=== PATIENT | female | born 1975 | race Caucasian/White ===

== ENCOUNTER 2017-03-01 16:07 | Emergency (ER) | payer MEDICAID ==
[2017-03-01 16:51] LABS: Hematocrit 42.6 % (37.0-47.0); Hemoglobin 14.6 gm/dL (12.5-16.0); Mean Cell Volume 81.5 fl (78-100); Mean Corpuscular Hemoglobin 27.9 pg (27-31); Mean Corpuscular Hgb Conc 34.3 g/dl (32-36); Mean Platelet Volume 10.2 fl (6.0-9.5); Neutrophil # 5.9 K/mm3 (1.3-6.0); Neutrophil % 65.9 % (42-75.0); Platelet Count 315 K/mm3 (150-450); Red Blood Count 5.23 M/mm3 (4.2-5.4); Red Cell Distribution Width 12.5 % (11.5-14.0)
[2017-03-01] MEDS ORDERED: KETOROLAC TROMETHAMINE 30 MG/ML VIAL IV ONE (17:03)
[2017-03-01] MEDS ORDERED: HYDROmorphone HCL 1 MG/ML DISP.SYRIN IV ONE (17:03)
[2017-03-01] MEDS ORDERED: NORMAL SALINE 1,000 ML IV ONE (17:03)
[2017-03-01 17:04] LABS: Albumin * 3.7 gm/dl (3.4-5.0); Anion Gap 13.5 mmol/L (6.8-13.8); BUN/Creatinine Ratio 12.1 (9.0-21.6); Bilirubin, Total 0.3 mg/dL (0.0-1.1); Calcium * 9.1 mg/dL (7.9-10.9); Carbon Dioxide 26.9 mmol/L (24-32.6); Potassium 4.4 mmol/L (3.4-4.6); Total Protein 7.9 gm/dL (6.2-8.2)
--- OUTSIDE RECORDS SUMMARY | 2017-03-01 17:16 | XMS REPORT | Encounter Summary ---
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) [id number] [place] [address] [place], [place] [id number] Social History Tobacco Use Types Packs/Day Years Used Date Former Smoker Smokeless Tobacco: Never Used Alcohol Use Drinks/Week oz/Week Comments No Sex Assigned at Date Recorded Not on file as of this encounter Plan of Treatment Name Priority Associated Diagnoses Order Schedule TSH Routine Hyperthyroidism Expected: 02/27/2017, Expires: 01/15/2018 T4, free Routine Hyperthyroidism Expected: 02/27/2017, Expires: 01/15/2018 T3, free Routine Hyperthyroidism Expected: 02/27/2017, Expires: 01/15/2018 as of this encounter Visit Diagnoses Diagnosis Hyperthyroidism - Primary Thyrotoxicosis without mention of goiter or other cause, without mention of thyrotoxic crisis or storm in this encounter
--- OUTSIDE RECORDS SUMMARY | 2017-03-01 17:16 | XMS REPORT | Clinical Summary ---
:1975 Author Organization [employer] [place] [address] Care Team Providers Name Role Phone Unavailable Primary Care Provider Unavailable Source Comments This disclosure is being made pursuant to the [employer] program and maynot contain all information available regarding this patient.[employer] [facility] Allergies Active Allergy Reactions Severity Noted Date Comments Penicillins Rash Low 10/19/2016 Current Medications Be aware that medications may not be up to date as of this document. Alwaysverify current medications with the patient. Prescription Sig. Disp. Refills Start Date End Date Status escitalopram (LEXAPRO) Take 10 mg by 11/15/2015 Active 10 MG tablet mouth daily. fluticasone (FLONASE) 2 sprays by Left 10/25/2015 Active 50 MCG/ACT nasal spray Naris route daily. LORazepam (ATIVAN) 0.5 Take 0.5 mg by 11/15/2015 Active MG tablet mouth daily. SUMAtriptan succinate Take 100 mg by 04/01/2015 Active (IMITREX) 100 MG mouth as needed. tablet traZODone (DESYREL) Take 100 mg by Active 100 MG tablet mouth nightly. furosemide (LASIX) 20 Take 1 tab twice 60 tablet 0 10/27/2016 Active MG tablet a day as needed for leg swelling. methimazole (TAPAZOLE) Take 2.5 tablets 225 tablet 3 11/30/2016 Active 10 MG tablet by mouth 3 (three) times daily. 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 01/15/2017 Orders Only Manpreet Bear, DO 01/12/2017 Orders Only Endocrinology Manpreet Bear, Screening; DO Hyperthyroidism 01/02/2017 Orders Only Endocrinology Efe Barclay, Screening (Primary Dx); PETROLEUM INSPECTOR SUPERVISOR Hyperthyroidism 01/02/2017 Refill Endocrinology Efe Barclay, PETROLEUM INSPECTOR SUPERVISOR 12/29/2016 Telephone Endocrinology Efe Barclay, Results PETROLEUM INSPECTOR SUPERVISOR 11/30/2016 Office Visit Endocrinology Manpreet Bear, Right upper quadrant pain (Primary Dx); DO WELLS (dyspnea on exertion); Hyperthyroidism; Thyroid nodule; Rash from Last 3 Months Family History Medical History Relation Name Comments Hypertension Father Hyperlipidemia Maternal Grandmother Thyroid disease Maternal Grandmother Cancer Maternal Uncle Hypertension Mother Thyroid disease Mother Relation Name Status Comments Father Maternal Grandmother Maternal Uncle Mother Social History Tobacco Use Types Packs/Day Years Used Date Former Smoker Smokeless Tobacco: Never Used Tobacco Cessation:Counseling Given: Yes Alcohol Use Drinks/Week oz/Week Comments No Sex Assigned at Date Recorded Not on file Last Filed Vital Signs Vital Sign Reading Time Taken Blood Pressure 154/90 11/30/2016 8:41 AM CDT Pulse 68 11/30/2016 8:41 AM CDT Temperature - - Respiratory Rate - - Oxygen Saturation - - Inhaled Oxygen Concentration - - Weight 95.3 kg (210 lb 1.6 oz) 11/30/2016 8:41 AM CDT Height 172.7 cm (5' 8") 11/30/2016 8:41 AM CDT Body Mass Index 31.95 11/30/2016 8:41 AM CDT Plan of Treatment Health Maintenance Due Date Last Done Comments Tetanus/Pertussis (1 - Tdap) 10/04/1994 Pap Smear 10/04/1996 INFLUENZA IMMUNIZATION (#1) 2017 Results NM HYPERTHYROID THERAPY I 131 (01/12/2017)NM THYROID IMAGING W FLOW (01/11/2017) hCG, Quantitative (01/11/2017) Specimen Performing Laboratory EXTERNAL NON UPH - NO INTERFACE T3, free (12/28/2016 9:36 AM) Component Value Ref Range T3, Free 4.45(H) 1.71 - 3.71 pg/mL Specimen Performing Laboratory [facility] [address] [place] [address] Narrative Testing performed at [facility], [address] [place] [address].Pool Lifeguard Hema Ye MD TSH (12/28/2016 9:36 AM) Component Value Ref Range TSH <0.010(L) 0.350 - 4.940 uIU/mL Specimen Performing Laboratory [facility] [address] [place] [address] Narrative Testing performed at [facility], [address] [place] [address].Pool Lifeguard Hema Ye MD T4, free (12/28/2016 9:36 AM) Component Value Ref Range Free T4 1.04 0.70 - 1.48 ng/dL Specimen Performing Laboratory [facility] [address] [place] [address] Narrative Testing performed at [facility], [address] [place] [address].Pool Lifeguard Hema Ye MD CBC auto differential (11/30/2016 9:49 AM) Component Value Ref Range WBC 6.3 3.1 - 11.0 x10^3/uL RBC 4.45 3.60 - 5.17 x10^6/uL Hemoglobin 11.9 11.1 - 15.3 g/dL Hematocrit 36.0 33.7 - 46.0 % MCV 80.9(L) 81.0 - 98.0 fL MCH 26.7(L) 27.2 - 33.3 pg MCHC 33.1 31.7 - 35.6 g/dL RDW 13.1 10.8 - 14.6 % SD-RDW 36.7(L) 37.0 - 50.4 fL Platelets 253 147 - 370 x10^3/uL MPV 11.1 9.1 - 12.1 fL NE% 55.1 42.0 - 76.0 % %LYMPH 28.9 15.0 - 44.0 % %MONO 8.8 4.0 - 13.0 % % Eosinophils 6.5(H) 0.0 - 6.0 % % Basophils 0.5 0.0 - 1.0 % Imm Gran Relative 0.2 0.0 - 1.0 % NE# 3.5 1.2 - 7.3 x10^3/uL Lymphs # 1.8 0.6 - 3.5 x10^3/uL Gonzales# 0.6 0.2 - 0.9 x10^3/uL Eosinophil # 0.4 0.0 - 0.4 x10^3/uL Baso# 0.0 0.0 - 0.1 x10^3/uL Imm Gran Absolute 0.01 0.00 - 0.10 x10^3/uL Specimen Performing Laboratory BLOOD [facility] [address] [place] [address] Narrative Testing performed at [facility], [address] [place] [address].Pool Lifeguard Hema Ye MD Hepatic function panel (11/30/2016 9:49 AM) Component Value Ref Range Albumin 3.0(L) 3.5 - 5.0 g/dL Total Protein 6.5 6.1 - 8.0 g/dL Bilirubin Total 0.5 0.2 - 1.2 mg/dL Bilirubin, Direct 0.2 0.0 - 0.5 mg/dL Alkaline Phosphatase 211(H) 40 - 150 U/L AST 16 5 - 34 U/L ALT 31 0 - 55 u/L Specimen Performing Laboratory [facility] [address] [place] [address] Narrative Testing performed at [facility] [place], [address] [place] [address].Pool Lifeguard Hema Ye MD Basic metabolic panel (11/30/2016 9:49 AM) Component Value Ref Range Glucose 113(H) 60 - 100 mg/dL Comment: Fasting Plasma Glucose (FPG)<100 MG/DL Impaired Fasting Glucose (IFG) 100-125 MG/DL Provisional Diagnosis of Diabetes Mellitus > kd=986 MG/DL (Diagnosis Must Be Confirmed) BUN, Blood 12 7 - 19 mg/dL Creatinine 0.7 0.6 - 1.2 mg/dL Glomerular Filtration Rate 110 >90 mL/min/1.73mm2 Estimate Glomerlular Filtration Rate 127Comment:The estimated GFR >90 mL/min/1.73mm2 Estimate- has not been validated for women or patients with serious comorbid conditions, or with extremes of body size, muscle mass, or nutritional status. Calcium 9.0 8.4 - 10.2 mg/dL Sodium 140 136 - 145 mmol/L Potassium 3.8 3.5 - 4.6 mmol/L Chloride 109 99 - 111 mmol/L CO2 23.6 21.0 - 32.0 mmol/L Specimen Performing Laboratory [facility] [address] [place] [address] Narrative Testing performed at [facility], [address] [place] [address].Pool Lifeguard Hema Ye MD from Last 3 Months Insurance Payer Benefit Plan / Subscriber ID Type Phone Address Group [place] [id number] [place] of State [phone]
--- OUTSIDE RECORDS SUMMARY | 2017-03-01 17:16 | XMS REPORT | Encounter Summary ---
:1975 Author Organization [employer] Address [place] [address] Care Team Providers Name Role Phone Unavailable Primary Care Provider Unavailable Encounter Details Date Type Department Care Team Description 01/15/2017 Orders Only [facility] Manpreet Bear, DO Centralized Scanning [facility] [place] [address] Social History Tobacco Use Types Packs/Day Years Used Date Former Smoker Smokeless Tobacco: Never Used Alcohol Use Drinks/Week oz/Week Comments No Sex Assigned at Date Recorded Not on file as of this encounter Plan of Treatment Not on fileas of this encounter Results NM HYPERTHYROID THERAPY I 131 (01/12/2017)NM THYROID IMAGING W FLOW (01/11/2017) in this encounter Visit Diagnoses Not on filein this encounter
--- OUTSIDE RECORDS SUMMARY | 2017-03-01 17:17 | XMS REPORT | Encounter Summary ---
:1975 Author Organization [employer] [place] [address] Care Team Providers Name Role Phone Unavailable Primary Care Provider Unavailable Reason for Visit Reason Comments Results Encounter Details Date Type Department Care Team Description 12/29/2016 Telephone [facility] Efe Barclay, [facility] Results Endocrinology [address] [place] [address] [place] [address] [phone] Social History Tobacco Use Types Packs/Day Years Used Date Former Smoker Smokeless Tobacco: Never Used Alcohol Use Drinks/Week oz/Week Comments No Sex Assigned at Date Recorded Not on file as of this encounter Plan of Treatment Not on fileas of this encounter Visit Diagnoses Not on filein this encounter
--- OUTSIDE RECORDS SUMMARY | 2017-03-01 17:17 | XMS REPORT | Encounter Summary ---
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 Hyperthyroidism [address] [place] [address] [place] [address] Social History Tobacco Use Types Packs/Day Years Used Date Former Smoker Smokeless Tobacco: Never Used Alcohol Use Drinks/Week oz/Week Comments No Sex Assigned at Date Recorded Not on file as of this encounter Plan of Treatment Not on fileas of this encounter Results hCG, Quantitative (01/11/2017) Specimen Performing Laboratory EXTERNAL NON UPH - NO INTERFACE in this encounter Visit Diagnoses Diagnosis Screening - Primary Screening for unspecified condition Hyperthyroidism Thyrotoxicosis without mention of goiter or other cause, without mention of thyrotoxic crisis or storm in this encounter
--- OUTSIDE RECORDS SUMMARY | 2017-03-01 17:17 | XMS REPORT | Encounter Summary ---
:1975 Author Organization [employer] [place] [address] Care Team Providers Name Role Phone Unavailable Primary Care Provider Unavailable Reason for Visit Reason Comments Medication Refill Encounter Details Date Type Department Care Team Description 01/02/2017 Refill [facility] Efe Barclay, [facility] Endocrinology [address] [place] [address] [place] [address] [phone] Social History Tobacco Use Types Packs/Day Years Used Date Former Smoker Smokeless Tobacco: Never Used Alcohol Use Drinks/Week oz/Week Comments No Sex Assigned at Date Recorded Not on file as of this encounter Plan of Treatment Not on fileas of this encounter Visit Diagnoses Not on filein this encounter
--- OUTSIDE RECORDS SUMMARY | 2017-03-01 17:17 | XMS REPORT | Encounter Summary ---
:1975 Author Organization [employer] [place] [address] Care Team Providers Name Role Phone Unavailable Primary Care Provider Unavailable Encounter Details Date Type Department Care Team Description 01/12/2017 Orders Only [facility] Manpreet Bear, DO Screening; Endocrinology [address] Hyperthyroidism [address] [place] [address] [place] [id number] Social History Tobacco Use Types Packs/Day Years Used Date Former Smoker Smokeless Tobacco: Never Used Alcohol Use Drinks/Week oz/Week Comments No Sex Assigned at Date Recorded Not on file as of this encounter Plan of Treatment Not on fileas of this encounter Results hCG, Quantitative (01/11/2017) Specimen Performing Laboratory EXTERNAL NON UPH - NO INTERFACE in this encounter Visit Diagnoses Diagnosis Screening Screening for unspecified condition Hyperthyroidism Thyrotoxicosis without mention of goiter or other cause, without mention of thyrotoxic crisis or storm in this encounter
--- OUTSIDE RECORDS SUMMARY | 2017-03-01 17:18 | XMS REPORT | Encounter Summary ---
:1975 Author Organization [employer] [place] [address] Care Team Providers Name Role Phone Unavailable Primary Care Provider Unavailable Reason for Referral Diagnostic Cardiology (Routine) Status Reason Specialty Diagnoses / Referred By Referred To Procedures Contact Contact Authorization Not Diagnoses Hyperthyroidism Edema of lower extremity, unspecified laterality WELLS (dyspnea on exertion) Manpreet Bear Needed Procedures TTE (Transthoracic Echo) Complete C, DO [address] [place] [address] Diagnostic Cardiology (Routine) Status Reason Specialty Diagnoses / Referred By Referred To Procedures Contact Contact Authorization Not Diagnoses Hyperthyroidism Edema of lower extremity, unspecified laterality WELLS (dyspnea on exertion) Manpreet Bear Needed Procedures Echocardiogram 2D complete C, DO [address] [place] [address] Reason for Visit Reason Comments Thyroid Problem Encounter Details Date Type Department Care Team Description 10/27/2016 Initial consult [facility] Manpreet Bear Thyroid nodule (Primary Dx); Endocrinology C, DO Hyperthyroidism; [address] WELLS (dyspnea on exertion); [place] [address] [place] [address] Bilateral edema of lower extremity; [phone] Graves disease Social History Tobacco Use Types Packs/Day Years Used Date Former Smoker Tobacco Cessation:Counseling Given: No Sex Assigned at Date Recorded Not on file as of this encounter Last Filed Vital Signs Vital Sign Reading Time Taken Blood Pressure 112/78 10/27/2016 9:04 AM CDT Pulse 80 10/27/2016 9:04 AM CDT Temperature - - Respiratory Rate - - Oxygen Saturation - - Inhaled Oxygen Concentration - - Weight 92.5 kg (203 lb 14.4 oz) 10/27/2016 9:04 AM CDT Height 172.7 cm (5' 8") 10/27/2016 9:04 AM CDT Body Mass Index 31 10/27/2016 9:04 AM CDT in this encounter Progress Notes Manpreet Bear, DO - 10/27/2016 9:02 AM CDTFormatting of this note may be different from the original. [facility] Department of Endocrinology [address] [place], [place] [id number] Subjective: Vaishali Aldrich is a 41 y.o. female who I am seeing for hyperthyroidism. The patient is a referral from Suzy Brink NP. I reviewed the patient's most recent notes, which outline the diagnosis and treatment of their medical condition up to this point. She got sick beginning of last month. On tamilflu, 3 days into flu began having shaking in legs. She began shaking more all over body, got chest pains, labs showed hyperthyroidism. She is having trouble sleeping, body wide swelling, WELLS,leg weakness, dysphagia, depression, hives, heat intolerance, no energy. No eye involvement. She was put on propranolol. Now on 80mg ER and 40 of regular daily. She is still having WELLS and palpitations. Recent labs reviewed today: Component Latest Ref Rng 09/25/2016 T3, Free 2.30-4.20>25.00 T4, Free 0.80-1.70>6.09 TSH 0.35-5.00<0.01 09/27/16: TSI 221 (0-139) TPO ab 16 Mom and MGM had Graves' disease. In May last year, thyroid labs were done that suggested hyperthyroidism, then she was told this was fine. CT chest with contrast done on 09/26/16 that showed thyromegaly. Past Medical History History reviewed. No pertinent past medical history. Past Surgical History History reviewed. No pertinent past surgical history. Allergies Penicillins Medications Current Outpatient Prescriptions Medication Sig Dispense Refill escitalopram (LEXAPRO) 10 MG tablet Take 10 mg by mouth daily. fluticasone (FLONASE) 50 MCG/ACT nasal spray 2 sprays by Left Naris route daily. LORazepam (ATIVAN) 0.5 MG tablet Take 0.5 mg by mouth daily. propranolol (INDERAL) 40 MG tablet Take 80 mg by mouth daily. SUMAtriptan succinate (IMITREX) 100 MG tablet Take 100 mg by mouth as needed. traZODone (DESYREL) 100 MG tablet Take 100 mg by mouth nightly. furosemide (LASIX) 20 MG tablet Take 1 tab twice a day as needed for leg swelling. 60 tablet 0 methimazole (TAPAZOLE) 10 MG tablet Take 2 tablets by mouth 3 (three) times daily. 180 tablet 3 No current facility-administered medications for this visit. Family History Family History Problem Relation Age of Onset Hypertension Mother Thyroid disease Mother Hypertension Father Cancer Maternal Uncle Hyperlipidemia Maternal Grandmother Thyroid disease Maternal Grandmother Social History Social History Substance Use Topics Smoking status: Former Smoker Smokeless tobacco: Not on file Alcohol Use: Not on file Review of Systems Weight loss: no Weight gain: yes Increased fatigue: no Anxiety: no Emotional lability: no Heat intolerance: yes Cold intolerance: no Palpitations: yes Increased frequency of bowel movements: no Unusual constipation: no Weakness: no Difficulty sleeping: yes Difficulty concentrating: no Excessive hair loss: no Increased dryness of skin: no Tremor: yes Objective: Filed Vitals: 10/27/16 0904 BP: 112/78 Pulse: 80 Wt Readings from Last 3 Encounters: 10/27/16 92.488 kg (203 lb 14.4 oz) Body mass index is 31.01 kg/(m^2). Constitutional: Looks well, but complaining of being too hot Psych: Normal affect, alert, oriented, cooperative Neck/throat: moist oral mucosa, thyroid enlarged without distinctly palpable nodules Respiratory: Respiratory effort normal, breath sounds normal, no rales, no rhonchi, no wheezing Cardiac: Heart rate normal, heart rhythm normal, heart sounds normal, no heart murmur Vascular: DP and PT pulses present Lymph: no cervical lymphadenopathy Skin: warm, moist Neuro: nonfocal, + tremor, DTRs hyperreflexic Musculoskeletal: + LE weakness and + BLE edema- 1+ pitting Lab Review Lab Results Component Value Date TSH<0.01 09/25/2016 No results found for: FREET4 Assessment/Plan: 1. Hyperthyroidism Severe. Due to WELLS and LE edema, I am concerned for high output heart failure. Will start Lasix 20mg twice daily and get Echocardiagram. Agree with propranolol 40mg three times daily. I will start Methimazole 20mg three times daily with TSH, FT4, FT3 in 4 weeks and f/u with me in 2 weeks. - Echocardiogram 2D complete; Future - TTE (Transthoracic Echo) Complete; Future 2. WELLS (dyspnea on exertion) Appears to be due to high-output heart failure. Plan as above. - Echocardiogram 2D complete; Future - TTE (Transthoracic Echo) Complete; Future 3. Bilateral edema of lower extremity Appears to be due to high-output heart failure. Plan as above. - Echocardiogram 2D complete; Future - TTE (Transthoracic Echo) Complete; Future 4. Thyroid nodule Too small to merit biopsy. Will reimage at a future time. 5. Graves disease As above. Severe. Laboratory results were reviewed and discussed with the patient. The patient voiced understanding and agreement with the above treatment plan. RTC in 2 weeks. Thank you for this consult. CC Suzy Brink NPin this encounter Plan of Treatment Not on fileas of this encounter Results TSH (11/27/2016 11:33 AM) Component Value Ref Range TSH <0.010(L) 0.350 - 4.940 uIU/mL Specimen Performing Laboratory [facility] [address] [place] [address] Narrative Testing performed at [facility], [address] [place] [address].Radio Mechanic Hema Ye MD T4, free (11/27/2016 11:33 AM) Component Value Ref Range Free T4 1.62(H) 0.70 - 1.48 ng/dL Specimen Performing Laboratory [facility] [address] [place] [address] Narrative Testing performed at [facility], [address] [place] [address].Radio Mechanic Hema Ye MD T3, free (11/27/2016 11:33 AM) Component Value Ref Range T3, Free 5.36(H) 1.71 - 3.71 pg/mL Specimen Performing Laboratory [facility] [address] [place] [address] Narrative Testing performed at [facility], [address] [place] [address].Radio Mechanic Hema Ye MD TTE (Transthoracic Echo) Complete (10/27/2016 10:36 AM) Specimen Performing Laboratory [facility] [place] [address] Echocardiographic Report Patient Name: VAISHALI ALDRICH JPatient ID: [id number] : [id number] Date: 10/27/2016 10:36:35 AM Gender: FAccession #: [id number] BSA: 2.11Weight(Kg): 92 Quality: Good Procedures: Echocardiographic Report: Transthoracic echocardiogram with complete 2D, M-Mode, color flow and Doppler examination. Indications: Edema, Shortness of breath, and Hyperthyroidism. Measurements: 2D/M Mode MeasurementValueNormal Range IVSd MM1.1[ 0.6 - 0.9 ] cm IVSs MM1.54 [ 1.00 - 5.00 ] cm LVIDd MM 5.3[ 3.9 - 5.3 ] cm LVIDs MM 2.9[ 2.3 - 3.9 ] cm LVPWs MM 1.7[ 1.0 - 5.0 ] cm AoR Diam MM2.70 [ 2.60 - 3.70 ] cm LA Dimen MM3.8[ 2.7 - 3.8 ] cm LA/Ao MM 1.39 ratio ACS MM 1.8cm EDV MM 130.0[ 56.0 - 104.0 ] ml ESV MM 33.2 [ 19.0 - 49.0 ] ml LV FS MM 43.6 [ 27.0 - 45.0 ] percent EF MM74.4 [ 55.0 - 70.0 ] percent LVPWd 2D 1.1[ 0.6 - 1.0 ] cm MV E/A 1.9[ 0.8 - 1.5 ] ratio MV Decel Time0.2[ 104.0 - 258.0 ] msec MV PHT 0.6 PV Peak Ehf460.0[ 40.0 - 80.0 ] cm/sec PV Peak PG 6.5mmHg TR Peak Dgk177.0[ 100.0 - 280.0 ] cm/sec TR Peak PG 8.8mmHg Doppler MeasurementValueNormal Range AV Mean PG 9.9[ 2.0 - 4.0 ] mmHg AV Peak Xaq399.0[ 100.0 - 170.0 ] cm/sec AV Peak PG 17.0 [ 2.0 - 9.0 ] mmHg KUSH VTI2.3[ 2.0 - 4.0 ] cm2 AV VTI 37.6 cm LVOT Diam2.0[ 1.7 - 2.1 ] cm LVOT Uwpr2596.8 LVOT Mean Jqf705.0[ 60.0 - 80.0 ] cm/sec LVOT Mean PG 5.3[ 1.0 - 3.0 ] mmHg LVOT Peak Hhq056.0[ 70.0 - 110.0 ] cm/sec LVOT Peak PG 8.5[ 2.0 - 6.0 ] mmHg LVOT VTI 27.0 [ 20.0 - 30.0 ] cm MV E Peak Pbq432.0[ 60.0 - 130.0 ] cm/sec MV A Peak Vel55.2 [ 100.0 - 120.0 ] cm/sec Findings: Left Ventricle: Hyperdynamic left ventricular systolic function. Ejection fraction is estimated at 70 %. Borderline left ventricular hypertrophy. Diastolic Function: Diastolic function is normal. Right Ventricle: Normal right ventricular size. Normal right ventricular function. Left Atrium: The left atrium is normal in size. Right Atrium: The right atrium is normal in size. RA Pressure is 3. Mitral Valve: Mitral valve leaflets appear mildly thickened. Trivial mitral regurgitation. Aortic Valve: No significant aortic stenosis or insufficiency. Tricuspid Valve: There is trivial tricuspid regurgitation. Pulmonic Valve: There is trace pulmonic regurgitation. Pericardium: Normal pericardium with no significant pericardial effusion or masses seen. Aorta: Normal aortic root. Conclusions: Hyperdynamic left ventricular systolic function. Ejection fraction is estimated at 70 %. Borderline left ventricular hypertrophy. Diastolic function is normal. The left atrium is normal in size. Mitral valve leaflets appear mildly thickened. Trivial mitral regurgitation. No significant aortic stenosis or insufficiency. There is trivial tricuspid regurgitation. There is trace pulmonic regurgitation. Normal pericardium with no significant pericardial effusion or masses seen. Electronically Signed By: Dr. Zelalem Nevarez MD, [facility], [facility] 2016-10-30 08:18:38 CDT CC: CC: Procedure Note Luciano, External Ris In - 10/30/2016 8:19 AM CDT [facility] [address] Echocardiographic Report Patient Name: VAISHALI ALDRICH JPatient ID: [id number] : [id number] Date: 10/27/2016 10:36:35 AM Gender: FAccession #: [id number] BSA: 2.11Weight(Kg): 92 Quality: Good Procedures: Echocardiographic Report: Transthoracic echocardiogram with complete 2D, M-Mode, color flow and Doppler examination. Indications: Edema, Shortness of breath, and Hyperthyroidism. Measurements: 2D/M Mode Measurement Value Normal Range IVSd MM 1.1 [ 0.6 - 0.9 ] cm IVSs MM 1.54 [ 1.00 - 5.00 ] cm LVIDd MM 5.3 [ 3.9 - 5.3 ] cm LVIDs MM 2.9 [ 2.3 - 3.9 ] cm LVPWs MM 1.7 [ 1.0 - 5.0 ] cm AoR Diam MM 2.70 [ 2.60 - 3.70 ] cm LA Dimen MM 3.8 [ 2.7 - 3.8 ] cm LA/Ao MM 1.39 ratio ACS MM 1.8 cm EDV MM 130.0 [ 56.0 - 104.0 ] ml ESV MM 33.2 [ 19.0 - 49.0 ] ml LV FS MM 43.6 [ 27.0 - 45.0 ] percent EF MM 74.4 [ 55.0 - 70.0 ] percent LVPWd 2D 1.1 [ 0.6 - 1.0 ] cm MV E/A 1.9 [ 0.8 - 1.5 ] ratio MV Decel Time 0.2 [ 104.0 - 258.0 ] msec MV PHT 0.6 PV Peak Hector 128.0 [ 40.0 - 80.0 ] cm/sec PV Peak PG 6.5 mmHg TR Peak Hector 166.0 [ 100.0 - 280.0 ] cm/sec TR Peak PG 8.8 mmHg Doppler Measurement Value Normal Range AV Mean PG 9.9 [ 2.0 - 4.0 ] mmHg AV Peak Hector 206.0 [ 100.0 - 170.0 ] cm/sec AV Peak PG 17.0 [ 2.0 - 9.0 ] mmHg KUSH VTI 2.3 [ 2.0 - 4.0 ] cm2 AV VTI 37.6 cm LVOT Diam 2.0 [ 1.7 - 2.1 ] cm LVOT Area 1109.8 LVOT Mean Hector 109.0 [ 60.0 - 80.0 ] cm/sec LVOT Mean PG 5.3 [ 1.0 - 3.0 ] mmHg LVOT Peak Hector 146.0 [ 70.0 - 110.0 ] cm/sec LVOT Peak PG 8.5 [ 2.0 - 6.0 ] mmHg LVOT VTI 27.0 [ 20.0 - 30.0 ] cm MV E Peak Hector 104.0 [ 60.0 - 130.0 ] cm/sec MV A Peak Hector 55.2 [ 100.0 - 120.0 ] cm/sec Findings: Left Ventricle: Hyperdynamic left ventricular systolic function. Ejection fraction is estimated at 70 %. Borderline left ventricular hypertrophy. Diastolic Function: Diastolic function is normal. Right Ventricle: Normal right ventricular size. Normal right ventricular function. Left Atrium: The left atrium is normal in size. Right Atrium: The right atrium is normal in size. RA Pressure is 3. Mitral Valve: Mitral valve leaflets appear mildly thickened. Trivial mitral regurgitation. Aortic Valve: No significant aortic stenosis or insufficiency. Tricuspid Valve: There is trivial tricuspid regurgitation. Pulmonic Valve: There is trace pulmonic regurgitation. Pericardium: Normal pericardium with no significant pericardial effusion or masses seen. Aorta: Normal aortic root. Conclusions: Hyperdynamic left ventricular systolic function. Ejection fraction is estimated at 70 %. Borderline left ventricular hypertrophy. Diastolic function is normal. The left atrium is normal in size. Mitral valve leaflets appear mildly thickened. Trivial mitral regurgitation. No significant aortic stenosis or insufficiency. There is trivial tricuspid regurgitation. There is trace pulmonic regurgitation. Normal pericardium with no significant pericardial effusion or masses seen. Electronically Signed By: Dr. Zelalem Nevarez MD, [facility], [facility] 2016-10-30 08:18:38 CDT CC: CC: in this encounter Visit Diagnoses Diagnosis Thyroid nodule - Primary Nontoxic uninodular goiter Hyperthyroidism Thyrotoxicosis without mention of goiter or other cause, without mention of thyrotoxic crisis or storm WELLS (dyspnea on exertion) Other dyspnea and respiratory abnormality Bilateral edema of lower extremity Edema Graves disease Toxic diffuse goiter without mention of thyrotoxic crisis or storm in this encounter
--- OUTSIDE RECORDS SUMMARY | 2017-03-01 17:18 | XMS REPORT | Encounter Summary ---
:1975 Author Organization [employer] Address [place] [address] Care Team Providers Name Role Phone Unavailable Primary Care Provider Unavailable Encounter Details Date Type Department Care Team Description 11/30/2016 Office Visit [facility] Manpreet Bear Right upper quadrant pain (Primary Dx); Endocrinology CDO WELLS (dyspnea on exertion); [address] [place] [address] Hyperthyroidism; [place] [address] [place] [address] Thyroid nodule; [phone] Rash Social History Tobacco Use Types Packs/Day Years [...] Mass Index 31.95 11/30/2016 8:41 AM CDT in this encounter Progress Notes Manpreet Bear, DO - 11/30/2016 8:37 AM CDTFormatting of this note may be different from the original. [facility] Department of Endocrinology [address] [place] [id number] Subjective: Vaishali Aldrich is a 41 y.o. [...] got chest pains, labs showed hyperthyroidism. She was having trouble sleeping, body wide swelling, WELLS, leg weakness, dysphagia, depression, hives, heat intolerance, no energy. No eye involvement. She was put on propranolol. Recent labs reviewed today: Component Latest Ref Rng 11/27/2016 09/25/2016 T3, Free 2.30-4.20>25.00 T4, Free 0.80-1.70>6.09 TSH 0.35-5.00<0.01 T3, Free 1.71 - 3.71 pg/mL 5.36 (H) Free T4 0.70 - 1.48 ng/dL 1.62 (H) TSH 0.350 - 4.940 uIU/mL<0.010 (L) 09/27/16: TSI 221 (0-139) TPO ab 16 Mom and MGM had Graves' disease. In Oct last year, thyroid labs were done that suggested hyperthyroidism, then she was told this was fine. CT chest with contrast done on 09/26/16 that showed thyromegaly. On methimazole 25mg three times daily, propranolol 40mg three times daily and lasix 20mg as needed (used twice last week). She continues to complain of WELLS, LE edema--lasix helps. She having trouble sleeping due to large goiter. She can't breathe well. She does not have any palpitations. LE weakness persists. No hives, heat intolerance, hot flashes. Past Medical History No past medical history on file. Past Surgical History No past surgical history on file. Allergies Penicillins Medications Current Outpatient Prescriptions Medication Sig Dispense Refill escitalopram (LEXAPRO) 10 MG tablet Take 10 mg by mouth daily. fluticasone (FLONASE) 50 MCG/ACT nasal spray 2 sprays by Left Naris route daily. furosemide (LASIX) 20 MG tablet Take 1 tab twice a day as needed for leg swelling. 60 tablet 0 LORazepam (ATIVAN) 0.5 MG tablet Take 0.5 mg by mouth daily. methimazole (TAPAZOLE) 10 MG tablet Take 2 tablets by mouth 3 (three) times daily. 180 tablet 3 propranolol (INDERAL) 40 MG tablet Take 80 mg by mouth daily. SUMAtriptan succinate (IMITREX) 100 MG tablet Take 100 mg by mouth as needed. traZODone (DESYREL) 100 MG tablet Take 100 mg by mouth nightly. No current facility-administered medications for this visit. Family History Family History Problem Relation Age of Onset Hypertension Mother Thyroid disease Mother Hypertension Father Cancer Maternal Uncle Hyperlipidemia Maternal Grandmother Thyroid disease Maternal Grandmother Social History Social History Substance Use Topics Smoking status: Former Smoker Smokeless tobacco: Never Used Alcohol Use: No Review of Systems Weight loss: no Weight gain: yes Increased fatigue: no Anxiety: no Emotional lability: no Heat intolerance: no Cold intolerance: no Palpitations: yes Increased frequency of bowel movements: no Unusual constipation: no Weakness: yes Difficulty sleeping: yes Difficulty concentrating: no Excessive hair loss: no Increased dryness of skin: yes Tremor: yes Objective: Filed Vitals: 11/30/16 0841 BP: 154/90 Pulse: 68 Wt Readings from Last 3 Encounters: 11/30/16 95.301 kg (210 lb 1.6 oz) 10/27/16 92.488 kg (203 lb 14.4 oz) Body mass index is 31.95 kg/(m^2). Constitutional: Looks well, but complaining of [...] present Lymph: no cervical lymphadenopathy Skin: warm, moist,light rash on chest Neuro: nonfocal, now tremor, DTRs not hyperreflexic Musculoskeletal: mild LE weakness and no LE edema Lab Review Lab Results Component Value Date TSH<0.010* 11/27/2016 TSH<0.01 09/25/2016 Lab Results Component Value Date FREET4 1.62* 11/27/2016 Conclusions: Hyperdynamic left ventricular systolic function. Ejection fraction is estimated at 70 %. Borderline left ventricular hypertrophy. Diastolic function is normal. The left atrium is normal in size. Mitral valve leaflets appear mildly thickened. Trivial mitral regurgitation. No significant aortic stenosis or insufficiency. There is trivial tricuspid regurgitation. There is trace pulmonic regurgitation. Normal pericardium with no significant pericardial effusion or masses seen. Assessment/Plan: 1. Hyperthyroidism Uncontrolled, but improving. Will cont Lasix 20mg prn. cont propranolol 40mg three times daily. Cont Methimazole, increase to 25mg three times daily with TSH, FT4, FT3 in 4 weeks and f/u with me in 6 weeks. 2. High output heart failure--from hyperthyroidism. Cont propranolol and lasix, ablation after levels controlled. 4. Thyroid nodule Too small to merit biopsy. Will reimage at a future time. 5. Rash--new to me--mild CBC today 6. RUQ pain CMP today. May need to stop methimazole and treat with DECKER early. Laboratory results were reviewed and discussed with the patient. The patient voiced understanding and agreement with the above treatment plan. RTC in 6 weeks. CC Suzy Brink NPin this encounter Plan of Treatment Not on fileas of this encounter Results TSH (12/28/2016 9:36 AM) Component Value Ref Range TSH <0.010(L) 0.350 - 4.940 uIU/mL Specimen Performing Laboratory [facility] [address] [place] [address] Narrative Testing performed at [facility], [address] [place] [address].Commercial Credit Reviewer Hema Ye MD T4, free (12/28/2016 9:36 AM) Component Value Ref Range Free T4 1.04 0.70 - 1.48 ng/dL Specimen Performing Laboratory [facility] [address] [place] [address] Narrative Testing performed at [facility], [address] [place] [address].Commercial Credit Reviewer Hema Ye MD T3, free (12/28/2016 9:36 AM) Component Value Ref Range T3, Free 4.45(H) 1.71 - 3.71 pg/mL Specimen Performing Laboratory [facility] [address] [place] [address] Narrative Testing performed at [facility], [address] [place] [address].Commercial Credit Reviewer Hema Ye MD CBC auto differential (11/30/2016 [...] Lymphs # 1.8 0.6 - 3.5 x10^3/uL [place]# 0.6 0.2 - 0.9 x10^3/uL Eosinophil # 0.4 0.0 - 0.4 x10^3/uL Baso# 0.0 0.0 - 0.1 x10^3/uL Imm Gran Absolute 0.01 0.00 - 0.10 x10^3/uL Specimen Performing Laboratory BLOOD [facility] [address] [place] [address] Narrative Testing performed at [facility], [address] [place] [address].Commercial Credit Reviewer Hema Ye MD Hepatic function panel (11/30/2016 9:49 AM) Component Value Ref Range Albumin 3.0(L) 3.5 - 5.0 g/dL Total Protein 6.5 6.1 - 8.0 g/dL Bilirubin Total 0.5 0.2 - 1.2 mg/dL Bilirubin, Direct 0.2 0.0 - 0.5 mg/dL Alkaline Phosphatase 211(H) 40 - 150 U/L AST 16 5 - 34 U/L ALT 31 0 - 55 u/L Specimen Performing Laboratory [facility] [address] [place] [address] Narrative Testing performed at [facility], [address] [place] [address].Commercial Credit Reviewer Hema Ye MD Basic metabolic panel (11/30/2016 9:49 AM) Component Value Ref Range Glucose 113(H) 60 - 100 mg/dL Comment: Fasting Plasma Glucose (FPG)<100 MG/DL Impaired Fasting Glucose (IFG) 100-125 MG/DL Provisional Diagnosis of Diabetes Mellitus > ts=616 MG/DL (Diagnosis Must Be Confirmed) BUN, Blood [...] 21.0 - 32.0 mmol/L Specimen Performing Laboratory [facility] [address] [place] [address] Narrative Testing performed at [facility], [address] [place] [address].Commercial Credit Reviewer Hema Ye MD in this encounter Visit Diagnoses Diagnosis Right upper quadrant pain - Primary Abdominal pain, right upper quadrant WELLS (dyspnea on exertion) Other dyspnea and respiratory abnormality Hyperthyroidism Thyrotoxicosis without mention of goiter or other cause, without mention of thyrotoxic crisis or storm Thyroid nodule Nontoxic uninodular goiter Rash Rash and other nonspecific skin eruption in this encounter
--- OUTSIDE RECORDS SUMMARY | 2017-03-01 17:18 | XMS REPORT | Encounter Summary ---
:1975 Author Organization [employer] [place] [address] Care Team Providers Name Role Phone Unavailable Primary Care Provider Unavailable Encounter Details Date Type Department Care Team Description 10/19/2016 Abstract [facility] Efe Barclay, [facility] Endocrinology [address] [facility] [address] [place] [address] [place] [id number] Social History Tobacco Use Types Packs/Day Years Used Date Never Assessed Sex Assigned at Date Recorded Not on file as of this encounter Plan of Treatment Not on fileas of this encounter Results TSH (09/25/2016) Component Value Ref Range TSH <0.01 0.35 - 5.00 T4, free (09/25/2016) Component Value Ref Range T4, Free >6.09 0.80 - 1.70 T3, free (09/25/2016) Component Value Ref Range T3, Free >25.00 2.30 - 4.20 in this encounter Visit Diagnoses Not on filein this encounter
--- OUTSIDE RECORDS SUMMARY | 2017-03-01 17:18 | XMS REPORT | Encounter Summary ---
:1975 Author Organization [employer] Address [place] [address] Care Team Providers Name Role Phone Unavailable Primary Care Provider Unavailable Reason for Visit Reason Comments Other Encounter Details Date Type Department Care Team Description 10/30/2016 Telephone [facility] Efe Barclay, [facility] Other Endocrinology [address] [place] [address] [place] [id number] Social History Tobacco Use Types Packs/Day Years Used Date Former Smoker Sex Assigned at Date Recorded Not on file as of this encounter Plan of Treatment Not on fileas of this encounter Visit Diagnoses Not on filein this encounter
[2017-03-01 17:51] LABS: Urine Bilirubin Negative (NEGATIVE); Urine Ketone Negative (NEGATIVE); Urine Nitrite Negative (NEGATIVE); Urine Protein Negative (NEGATIVE); Urine Specific Gravity 1.015 SP.GR. (1.005-1.010); Urine Urobilinogen Normal (NORMAL); Urine pH 5.5 pH (5.0-7.0)
[2017-03-01] MEDS ORDERED: KETOROLAC TROMETHAMINE 30 MG/ML VIAL IM ONE (18:00)
[2017-03-01 18:02] LABS: Urine Appearance Clear; Urine Bacteria 1+; Urine Blood 5 /ul (NEGATIVE); Urine Color Yellow; Urine Other Crystal Few - 1+ /hpf; Urine RBC 0-5 /hpf (0-5); Urine WBC 0-5 /hpf (0-5)
[2017-03-01] MEDS ORDERED: KETOROLAC TROMETHAMINE 30 MG/ML VIAL ONE (18:03)
--- NOTE | 2017-03-01 19:10 | ERNOTE ---
ER Female HPI Date of Service: 03/01/17 Stated Complaint: Back pain Time Seen by Provider: 03/01/17 16:57 Source: patient Exam Limitations: no limitations Immunizations: IMMUNIZATION HX Immunizations Up to Date Yes Allergies/Adverse Reactions: Allergies No Known Allergies Allergy (Unverified 03/01/17 16:33) Home Medications: HOME MEDICATIONS Cyclobenzaprine HCl [Flexeril] 10 mg PO TID PRN #20 tab 03/01/17 [Last Taken Unknown] Escitalopram Oxalate [Lexapro] 10 mg PO DAILY 03/01/17 [Last Taken Unknown] HYDROcodone/ACETAMINOPHEN [[place] 5-325] 1 each PO Q8H PRN #15 tablet 03/01/17 [ Last Taken Unknown] Naproxen 500 mg PO BID #10 tablet. 03/01/17 [Last Taken Unknown] Sulfamethoxazole/Trimethoprim [Bactrim Ds] 1 tab PO BID #14 tab 03/01/17 [Last Taken Unknown] - History of Present Illness Narrative: Patient presents to the ED for back pain. She relates she passed a kidney stone on the left which is typical for her, was feeling better yesterday but this am when she awoke had right low back pain. No radiation of the pain. no radicular Sx. Hurts to move or touch the area. no trauma. Has not seen anyone else for this. No loss of bowel pr bladder control. No vomiting. No dysuria. Pain can be severe. Timing: Present: constant Quality: Present: severe Onset Location: Present: other - right low back Radiation: Present: none Activities at Onset: Present: none Modifying Factors - (Improves): Present: other - nothing Modifying Factors - (Worsens): Present: other - palpation Associated Symptoms: Absent: fever/chills, vomiting, abdominal pain, dysuria Prior Treatment: Absent: recently seen Review of Systems - Review of Systems Constitutional: Absent: fever ENT: Absent: sore throat Respiratory: Absent: shortness of breath Cardiology: Absent: chest pain Gastrointestinal/Abdominal: Absent: abdominal pain Genitourinary: Absent: dysuria Neurological: Absent: weakness, numbness, tingling - Patient's Past Medical History Patient History - Medical: Hypothyroidism Patient History - Cardiac/Respiratory: No pertinent hx Patient History - Cancer: No Hx of Cancer Patient History - Surgical Procedures: No surgical history Patient History - Other: None - Social History Living Situations: home Psych History: Hx of Anxiety Alcohol Use: none Drug Use: none - Immunizations Immunizations Up to Date: Yes Physical Exam - Physical Exam General Appearance: Present: alert, no apparent distress Head Exam: Present: normal inspection, no evidence of injury Eye Exam: Normal inspection: bilateral, PERRL: bilateral Ears, Nose, Throat: Present: normal ENT inspection Neck: Present: normal inspection Respiratory: Present: no respiratory distress, normal breath sounds, no accessory muscle use, lungs clear Cardiovascular/Chest: Present: regular rate, rhythm, normal peripheral pulses Gastrointestinal/Abdominal: Present: normal bowel sounds, nontender, soft Back Exam: Present: normal inspection, other - there is muscular tenderness right SI joint area. Muscles here are decidedly tender and palpation causes complete reproduction of her pain. . 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 Gait normal. No motor or sensory deficits. Absent: motor weakness Skin Exam: Present: normal color, warm/dry ED Progress - Results and Orders Patient's Lab Results:: I have reviewed the patient's lab results. - Vital Signs Patient's Vital Signs:: I have reviewed the patient's vital signs. Vital Signs: Vital Signs 03/01/17 03/01/17 03/01/17 16:26 16:58 17:22 Temperature 36.8 C Pulse Rate 90 92 94 Respiratory 12 Rate Blood Pressure 120/60 128/65 130/87 O2 Sat by Pulse 98 98 99 Oximetry 03/01/17 03/01/17 03/01/17 17:46 18:08 18:39 Temperature Pulse Rate 97 99 84 Respiratory Rate Blood Pressure 134/72 127/85 111/76 O2 Sat by Pulse 99 97 98 Oximetry - CT/Ultrasound CT/Ultrasound Narrative: I reviewed CT per radiology report - Progress/Reassessment Chief Complaint: Genitourinary Problem Progress Note-Subjective: 03/01/17 19:30 Patient felt much improved with Toradol. No kidney stone. Will coverr mild UTI given bacteria and esterase. Clinically this is muscular pain without neuor deficit, no cauda equina syndrome. She feels like going home. I discussed warning signs and reasons to return as well as the need for close f/u. Departure Clinical Impression: Back pain - Departure Disposition: Home self-care Condition: Stable Additional Instructions: Antibiotics as directed. No driving with pain medications. Follow-up Sunday with primary doctor for a re-check. Return here for fever, vomiting, numbness, tingling, weakness, trouble with bowel or bladder control or if your condition worsens or changes in any way. Prescriptions: Cyclobenzaprine HCl [Flexeril] 10 mg PO TID PRN #20 tab PRN Reason: MUSCLE SPASMS HYDROcodone/ACETAMINOPHEN [[place] 5-325] 1 each PO Q8H PRN #15 tablet PRN Reason: Pain Naproxen 500 mg PO BID #10 tablet. Sulfamethoxazole/Trimethoprim [Bactrim Ds] 1 tab PO BID #14 tab
[2017-03-01 19:42] VITALS: BP 118/77
== END 2017-03-01 19:37 | disposition home or self-care (01) ==
LOC: ER 16:07
DX: M54.9 Dorsalgia, unspecified (principal); F41.9 Anxiety disorder, unspecified

== ENCOUNTER 2017-09-30 15:52 | Emergency (ER) | payer OTHER, MEDICAID ==
--- NOTE | 2017-09-30 16:35 | ERNOTE ---
Medical Problem HPI - General Chief Complaint: Flu Symptoms Time Seen by Provider: 09/30/17 16:02 Source: patient Exam Limitations: no limitations - Immun/Allergies/Home Medications Immunizations: IMMUNIZATION HX Immunizations Up to Date Yes History of Influenza Vaccine No Hx Pneumococcal Vaccination No Allergies/Adverse Reactions: Allergies Penicillins Allergy (Mild, Verified 09/30/17 16:00) Hives Home Medications: HOME MEDICATIONS Escitalopram Oxalate [Lexapro] 10 mg PO DAILY 03/01/17 [Last Taken Unknown] Benzonatate [Tessalon Perle] 100 mg PO TID #20 capsule 09/30/17 [Last Taken Unknown] Cefuroxime Axetil [Ceftin] 500 mg PO BID #20 tab 09/30/17 [Last Taken Unknown] Levothyroxine Sodium [Synthroid] 137 mcg PO DAILY 09/30/17 [Last Taken Unknown] - History of Present History Narrative: Patient presents with sinus congestion and a loose cough. Onset of symptoms was 2 days ago and as her daughter tested positive for flu she wanted to make sure that she didn't have the fluids well. Timing: intermittent Severity: moderate Review of Systems - Review of Systems Constitutional: Present: See HPI EYE: Present: no symptoms reported ENT: Present: See HPI Respiratory: Present: See HPI Cardiology: Present: no symptoms reported Gastrointestinal/Abdominal: Present: no symptoms reported Genitourinary: Present: no symptoms reported Musculoskeletal: Present: no symptoms reported Skin: Present: no symptoms reported Neurological: Present: no symptoms reported Endocrine: Present: no symptoms reported Hematologic/Lymphatic: Present: no symptoms reported Psych: Present: no symptoms reported - Patient's Past Medical History Patient History - Medical: Hypothyroidism Patient History - Cardiac/Respiratory: No pertinent hx Patient History - Cancer: No Hx of Cancer Patient History - Surgical Procedures: No surgical history Patient History - Other: None LMP (females 10-50): 2 months - Social History Living Situations: other Abuse History: No History of abuse Psych History: Hx of Anxiety Smoking Status: Current every day smoker Have you smoked in the past 12 months: Yes Do you dip or chew tobacco: No Patient requests Smoking Cessation Consult: No Initiate information on Smoking Cessation: No Alcohol Use: none Drug Use: none - Immunizations Immunizations Up to Date: Yes Hx Pneumococcal Vaccination: No History of Influenza Vaccine: No Physical Exam - Physical Exam General Appearance: Present: wd/wn, alert, moderate distress Head Exam: Present: normal inspection, no evidence of injury Eye Exam: Normal inspection: bilateral, PERRL: bilateral Ears, Nose, Throat: Present: normal ENT inspection, normal pharynx, other - pain on pressure over the sinuses Neck: Present: normal inspection, nontender Respiratory: Present: no respiratory distress, no accessory muscle use, chest nontender, other - fine course breath sounds Cardiovascular/Chest: Present: regular rate, rhythm, no murmur, normal peripheral pulses Gastrointestinal/Abdominal: Present: normal bowel sounds, nontender, nondistended, soft, no organomegaly Rectal Exam: Present: deferred Back Exam: Present: normal inspection, normal range of motion Extremity Exam: Present: normal inspection, non-tender, no edema, normal range of motion Neurological Exam: Present: alert, oriented, normal mood/affect Skin Exam: Present: normal color, warm/dry Lymphatic Exam: Present: no adenopathy ED Progress - Results and Orders Patient's Lab Results:: I have reviewed the patient's lab results. - Vital Signs Patient's Vital Signs:: I have reviewed the patient's vital signs. Vital Signs: Vital Signs 09/30/17 15:56 Temperature 36.6 C Pulse Rate 80 Respiratory 12 Rate Blood Pressure 128/91 O2 Sat by Pulse 99 Oximetry - Progress/Reassessment Chief Complaint: Flu Symptoms Plan - Plan Plan: Patient appears to have a sinusitis and will be started on Ceftin and Tessalon Perles. Departure Clinical Impression: Bronchitis Sinusitis Qualifiers: Sinusitis location: pansinusitis Chronicity: acute Recurrence: non-recurrent Qualified Code(s): J01.40 - Acute pansinusitis, unspecified - Departure Disposition: Home self-care Condition: Good Instructions: Sinusitis, Adult, [id number], Acute Bronchitis, [id number] Referrals: Raad Warner APRN [Primary Care Provider] - Prescriptions: Benzonatate [Tessalon Perle] 100 mg PO TID #20 capsule Cefuroxime Axetil [Ceftin] 500 mg PO BID #20 tab
[2017-09-30 16:40] VITALS: BP 119/68
== END 2017-09-30 16:38 | disposition home or self-care (01) ==
LOC: ER 15:52
DX: J40 Bronchitis, not specified as acute or chronic (principal); J01.40 Acute pansinusitis, unspecified; E03.9 Hypothyroidism, unspecified; F17.210 Nicotine dependence, cigarettes, uncomplicated

== ENCOUNTER 2017-10-02 00:34 | Emergency (ER) | payer OTHER, MEDICAID ==
[2017-10-02] MEDS ORDERED: KETOROLAC TROMETHAMINE 30 MG/ML VIAL IV ONE (01:17)
--- NOTE | 2017-10-02 01:25 | ERNOTE ---
Back Pain ER HPI Presenting Symptoms: other - cough resulting in back pain Time Seen by Provider: 10/02/17 01:10 Immunizations: IMMUNIZATION HX Immunizations Up to Date Yes History of Influenza Vaccine No Hx Pneumococcal Vaccination No Allergies/Adverse Reactions: Allergies Penicillins Allergy (Mild, Verified 09/30/17 16:00) Hives Home Medications: HOME MEDICATIONS Escitalopram Oxalate [Lexapro] 10 mg PO DAILY 03/01/17 [Last Taken Unknown] Benzonatate [Tessalon Perle] 100 mg PO TID #20 capsule 09/30/17 [Last Taken Unknown] Cefuroxime Axetil [Ceftin] 500 mg PO BID #20 tab 09/30/17 [Last Taken Unknown] Levothyroxine Sodium [Synthroid] 137 mcg PO DAILY 09/30/17 [Last Taken Unknown] Doxycycline Hyclate [Morgidox] 100 mg PO BID #14 capsule 10/02/17 [Last Taken Unknown] Narrative: Pt had a cough and was seen in this ED over the weekend. She states that now that the mucous is loosening up she is coughing more and her mid to lower back is hurting Timing: Reports: getting worse Quality/Severity: Reports: moderate, severe, cramping, stabbing Location of pain: Reports: mid back, lower back Activities at Onset: Reports: other - cough Modifying Factors - (Improves): Reports: upright position Modifying Factors - (Worsens): Reports: movement flexion, cough/deep breaths Review of Systems - Review of Systems Constitutional: Present: recent illness, fatigue EYE: Present: no symptoms reported ENT: Present: no symptoms reported Respiratory: Present: cough Cardiology: Absent: chest pain Gastrointestinal/Abdominal: Present: constipation - for the past few days. Absent: nausea, vomiting Genitourinary: Present: frequency, other - incontinance Musculoskeletal: Present: back pain Skin: Present: no symptoms reported Neurological: Absent: numbness, tingling Endocrine: Absent: excessive sweating, flushing - Patient's Past Medical History Patient History - Medical: Hypothyroidism Patient History - Cardiac/Respiratory: No pertinent hx Patient History - Cancer: No Hx of Cancer Patient History - Surgical Procedures: No surgical history, Other Patient History - Other: None LMP (females 10-50): IUD - Social History Living Situations: home Abuse History: No History of abuse Psych History: Hx of Anxiety Smoking Status: Current some day smoker Have you smoked in the past 12 months: Yes Alcohol Use: rarely Drug Use: none - Immunizations Immunizations Up to Date: Yes Hx Pneumococcal Vaccination: No History of Influenza Vaccine: No Physical Exam - Physical Exam General Appearance: Present: wd/wn, alert, mild distress Head Exam: Present: normal inspection, no evidence of injury Ears, Nose, Throat: Present: normal ENT inspection Neck: Present: normal inspection, nontender Respiratory: Present: no respiratory distress, normal breath sounds, no accessory muscle use Cardiovascular/Chest: Present: regular rate, rhythm, no murmur, normal peripheral pulses Gastrointestinal/Abdominal: Present: normal bowel sounds, nontender, nondistended, soft Back Exam: Present: muscle spasm Extremity Exam: Present: normal inspection, normal range of motion, no edema Neurological Exam: Present: alert, oriented, normal mood/affect, no motor/ sensory deficits Skin Exam: Present: normal color, warm/dry Lymphatic Exam: Present: no adenopathy ED Progress - Results and Orders Patient's Lab Results:: I have reviewed the patient's lab results. Results and Orders: Laboratory Tests 09/30/17 10/02/17 10/02/17 16:02 01:17 01:17 WBC 6.9 Hgb 13.8 Hct 39.3 Plt Count 224 Sodium 137 Potassium 3.4 D Chloride 102 BUN 6 Creatinine 0.70 Random Glucose 111 H Calcium 8.3 Total Bilirubin 0.2 AST 35 ALT 70 H Alkaline Phosphatase 183 H Total Protein 7.3 Albumin 3.4 Influenza Type A Ag Negative Influenza Type B Ag Negative - Vital Signs Patient's Vital Signs:: I have reviewed the patient's vital signs. Vital Signs: Vital Signs 10/02/17 00:56 Temperature 37.0 C Pulse Rate 83 Respiratory 16 Rate Blood Pressure 145/92 O2 Sat by Pulse 97 Oximetry - X-Ray X-Ray #1 X-Ray: chest Interpretation: Interp. by me X-ray Comments: Early infiltrate RLL, No bony abnormalities X-Ray #2 X-Ray: abdomen Interpretation: Interp. by me X-ray Comments: moderate stool throughout the ascending colon. No evidence for mass or obstruction - Progress/Reassessment Chief Complaint: Back Pain Progress:: Improved Progress Note-Subjective: 10/02/17 01:58 upon initial examination, I explained to the patient the plan to start an IV and get blood and x-rays, she seemed hesitant about the IV. I asked if it was ok if we started and IV, she said "it's ok". As soon as the nurse got the IV started the patient began telling her to take it out, the nurse asked if we could keep it in long enough to give her toradol but she refused and asked for the toradol IM. Pt's request was accommodated. Departure Clinical Impression: Back pain Qualifiers: Back pain location: thoracic back pain Chronicity: acute Back pain laterality: bilateral Qualified Code(s): M54.6 - Pain in thoracic spine Constipation Qualifiers: Constipation type: drug induced constipation Qualified Code(s): K59.03 - Drug induced constipation Pneumonia Qualifiers: Pneumonia type: due to unspecified organism Laterality: right Lung location: lower lobe of lung Qualified Code(s): J18.1 - Lobar pneumonia, unspecified organism - Departure Disposition: Home self-care Condition: Good Instructions: Constipation, Adult, [id number] Additional Instructions: You may take another dose of milk of magnesia in 6-12 hours if necessary, then follow with a daily stool softener while on these medications. Take both antibiotics until gone and the anti-inflammatory as needed for pain. Follow up with your primary care provider if not improving Referrals: Raad Warner APRN [Primary Care Provider] - Prescriptions: Doxycycline Hyclate [Morgidox] 100 mg PO BID #14 capsule
[2017-10-02] MEDS ORDERED: KETOROLAC TROMETHAMINE 60 MG/2 ML VIAL IM ONE ×2 (01:30→01:32)
[2017-10-02] MEDS ORDERED: ONDANSETRON 4 MG TAB.RAPDIS PO ONE (01:30)
[2017-10-02] MEDS ORDERED: ONDANSETRON 4 MG TAB.RAPDIS ONE (01:32)
[2017-10-02 01:45] LABS: Hematocrit 39.3 % (37.0-47.0); Hemoglobin 13.8 gm/dL (12.5-16.0); Mean Cell Volume 86.8 fl (78-100); Mean Corpuscular Hemoglobin 30.5 pg (27-31); Mean Corpuscular Hgb Conc 35.1 g/dl (32-36); Mean Platelet Volume 10.4 fl (6.0-9.5); Neutrophil # 4.2 K/mm3 (1.3-6.0); Neutrophil % 61.1 % (42-75.0); Platelet Count 224 K/mm3 (150-450); Red Blood Count 4.53 M/mm3 (4.2-5.4); Red Cell Distribution Width 12.7 % (11.5-14.0); White Blood Count 6.9 K/mm3 (4.0-10.5)
[2017-10-02 02:04] LABS: Albumin * 3.4 gm/dl (3.4-5.0); Anion Gap 12.2 mmol/L (6.8-13.8); BUN/Creatinine Ratio 8.6 (9.0-21.6); Bilirubin, Total 0.2 mg/dL (0.0-1.1); Ca. Corrected For Albumin 8.5 mg/dL (8.4-10.2); Calcium * 8.3 mg/dL (7.9-10.9); Carbon Dioxide 26.2 mmol/L (24-32.6); Potassium 3.4 mmol/L (3.4-4.6); Total Protein 7.3 gm/dL (6.2-8.2)
[2017-10-02] MEDS ORDERED: MAGNESIUM HYDROXIDE 30 ML UDC PO ONE (02:38)
[2017-10-02] MEDS ORDERED: MAGNESIUM HYDROXIDE 30 ML UDC ONE (02:40)
[2017-10-02 02:45] VITALS: BP 123/74
[2017-10-02] MEDS ORDERED: DOXYCYCLINE HYCLATE 100 MG TABLET PO ONE (02:49)
[2017-10-02] MEDS ORDERED: DOXYCYCLINE HYCLATE 100 MG TABLET ONE (02:51)
== END 2017-10-02 02:56 | disposition home or self-care (01) ==
LOC: ER 00:34
DX: J18.1 Lobar pneumonia, unspecified organism; E03.9 Hypothyroidism, unspecified; K59.03 Drug induced constipation; M54.6 Pain in thoracic spine